=== PATIENT | female | born 1985 | race Caucasian/White ===

== ENCOUNTER → 2017-06-30 | Outpatient (CLI) | payer BC ==
--- NOTE | 2017-06-30 16:43 | RAD ---
Ultrasound thyroid 06/30/2017 Clinical indication: Thyromegaly. Comparison: None. Findings: Right lobe of the thyroid measures 5.4 x 1.7 x 2.1 cm. No discrete right lobe thyroid nodule. Isthmus measurement 0.3 cm Left lobe of the thyroid measures 4.8 x 1.5 x 1.5 cm. There is a tiny hypoechoic nodule with no internal blood flow at the superior aspect of the left lobe measuring 0.3 x 0.2 x 0.4 cm and a similar appearing hypoechoic nodule in the inferior left lobe measuring 0.4 x 0.2 x 0.5 cm. Impression: Two subcentimeter left lobe hypoechoic thyroid nodules, indeterminate. Follow-up thyroid ultrasound in 12 months could be performed for further evaluation.
== END | disposition home or self-care (01) ==
LOC: US 14:48
PROVIDERS: ATTEND Physician Assistant
DX: E01.0 Iodine-deficiency related diffuse (endemic) goiter (principal)
CPT/HCPCS: 76536

== ENCOUNTER → 2019-07-22 | Outpatient (CLI) | payer OTHER ==
--- NOTE | 2019-07-22 17:05 | RAD ---
PROCEDURE: ABDOMEN SUPINE UPRIGHT STUDY DATE: 07/22/2019 CLINICAL INDICATION / HISTORY: Abdomen pain. TECHNIQUE: Supine and upright AP images of the abdomen were obtained. COMPARISON: No relevant comparisons currently available. FINDINGS: The lung bases are clear. A nonobstructive bowel gas pattern is present. No organomegaly or pathologic calcifications are identified. No acute osseous abnormality. Cholecystectomy clips are present. IMPRESSION: No acute abdominal process. Electronically signed by: Gilberto Escalante MD (07/22/2019 5:02 PM) [facility]
== END | disposition home or self-care (01) ==
LOC: PMG 15:36
PROVIDERS: ATTEND Physician Assistant
DX: R10.31 Right lower quadrant pain (principal); Z90.49 Acquired absence of other specified parts of digestive tract
CPT/HCPCS: 74019